=== PATIENT | female | born 1985 ===

== ENCOUNTER → 2021-10-16 10:18 | Outpatient (CLI) | payer OTHER, SELFPAY ==
[2021-10-16 20:22] LABS: HCG Quantitative /Beta subunit 9767.6 mIU/mL
== END ==
PROVIDERS: PCP Physician Assistant Medical; Visit Provider Obstetrics & Gynecology
DX: Z32.01 Encounter for pregnancy test, result positive (principal)
CPT/HCPCS: 84702